=== PATIENT | female | born 1965 | race Two or more races ===

== ENCOUNTER 2018-05-04 12:30 | Emergency (ER) | payer SELFPAY ==
[~2018-05-04] VITALS: Ht 152.4 cm; Wt 74.4 kg
[2018-05-04 12:40] VITALS: BP 176/94
[2018-05-04] MEDS ORDERED: ORPHENADRINE CITRATE 60 MG/2 ML VIAL. IM ONE (13:15)
[2018-05-04] MEDS ORDERED: ORPH100T PO (14:06)
[2018-05-04] MEDS ORDERED: NAPR-695 PO (14:06)
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
== END 2018-05-04 14:15 | disposition home or self-care (01) ==
LOC: ER 12:30
DX: S16.1XXA Strain of muscle, fascia and tendon at neck level, initial encounter (principal); S29.012A Strain of muscle and tendon of back wall of thorax, initial encounter; M25.512 Pain in left shoulder; I10 Essential (primary) hypertension; M19.90 Unspecified osteoarthritis, unspecified site; E03.9 Hypothyroidism, unspecified; Z90.710 Acquired absence of both cervix and uterus; Z90.89 Acquired absence of other organs; V43.52XA Car driver injured in collision with other type car in traffic accident, initial encounter; Y93.89 Activity, other specified; Y92.410 Unspecified street and highway as the place of occurrence of the external cause; Y99.8 Other external cause status
CPT/HCPCS: 96372; 99283; J2360

== ENCOUNTER → 2018-05-08 | Outpatient (CLI) | payer SELFPAY ==
[2018-05-04 12:40] VITALS: BP 176/94
[~2018-05-08] MED LIST: NAPR-695 PO; ORPH100T PO
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
== END | disposition home or self-care (01) ==
LOC: KCIC 09:06
PROVIDERS: ATTEND Family Medicine
DX: M50.30 Other cervical disc degeneration, unspecified cervical region (principal); M48.02 Spinal stenosis, cervical region; M25.78 Osteophyte, vertebrae; M06.80 Other specified rheumatoid arthritis, unspecified site
CPT/HCPCS: 72040

== ENCOUNTER → 2020-03-06 | Outpatient (CLI) | payer OTHER ==
--- NOTE | 2020-03-06 08:38 | KCIC ---
ABDOMEN LTD History: Elevated liver enzymes Comparison: None. Findings: Multiple sonographic images of the abdomen are submitted. There is coarsening of the hepatic echotexture. Right lobe of the liver measured 15.5 cm longitudinal. There is no abnormality of the visualized pancreas. Right kidney measured 10.4 x 4.6 x 4.4 cm, no hydronephrosis. There is segmental visualization of the inferior vena cava. Most of the abdominal aorta is obscured by bowel gas, visualized distal abdominal aortic caliber within normal limits. Gallbladder is present without demonstrable intraluminal abnormality or wall thickening. Impression: 1. Coarsening of the hepatic echotexture is probably due to steatosis. No other significant abnormality is demonstrated. Electronically signed by: Eugenio Melvin MD (03/06/2020 8:35 AM) [facility]
== END ==
LOC: KCIC US 08:03
PROVIDERS: ATTEND Family Medicine
DX: R94.5 Abnormal results of liver function studies (principal)
CPT/HCPCS: 76705

== ENCOUNTER → 2020-06-25 | Outpatient (CLI) | payer OTHER ==
--- NOTE | 2020-06-25 19:48 | RAD ---
Exam: Right knee 3 views. Left knee 3 views INDICATION: Bilateral knee pain TECHNIQUE: Frontal, lateral and oblique views of the right and left knee Comparisons: None FINDINGS: Right knee: Bone mineralization is normal. No acute or healed fractures. Soft tissues are unremarkable. Joint spa yevgeniy are well-maintained. Left knee: Bone mineralization is normal. No acute or healed fractures. Soft tissues are unremarkable. Joint spa yevgeniy are well-maintained. IMPRESSION: No acute osseous abnormality of the right or left knee. Electronically signed by: Hetal Ybarra MD (06/25/2020 7:46 PM) [facility]
== END ==
LOC: RAD 15:01
PROVIDERS: ATTEND Family Medicine
DX: M25.562 Pain in left knee (principal); M25.561 Pain in right knee
CPT/HCPCS: 73562

== ENCOUNTER → 2020-08-29 | Outpatient (CLI) | payer SELFPAY ==
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
== END ==
LOC: KCIC MRI 08:55
PROVIDERS: ATTEND Family Medicine
DX: M47.816 Spondylosis without myelopathy or radiculopathy, lumbar region (principal); M48.07 Spinal stenosis, lumbosacral region
CPT/HCPCS: 72148

== ENCOUNTER → 2021-03-20 | Outpatient (CLI) | payer SELFPAY ==
--- NOTE | 2021-03-20 12:37 | KCIC ---
EXAMINATION: MRI RIGHT KNEE WITHOUT IV CONTRAST CLINICAL HISTORY: Chronic right knee pain, progressively worsening TECHNIQUE: Multiplanar multisequential images obtained through the knee without intravenous contrast. COMPARISON: Bilateral knee radiographs 06/25/2020 FINDINGS: MENISCI: Medial Meniscus: Intact. Lateral Meniscus: Intact. LIGAMENTS: ACL: Intact PCL: Intact MCL: Intact LCL Complex: Intact CARTILAGE: Medial Femoral Condyle: Small areas(s) of predominantly low grade (less than 50% thickness) cartilage loss and or fissuring with smaller area(s) of full thickness cartilage loss and or fissuring with south bchondral marrow reactive/cystic changes predominantly in the weightbearing portion of the condyle Medial Tibial Plateau: Normal Lateral Femoral Condyle: Small area(s) of low grade (less than 50% thickness) partial thickness carti joie loss and or fissuring Lateral Tibial Plateau: Normal Patella: Small areas(s) of predominantly low grade (less than 50% thickness) cartilage loss and or fi ssuring with smaller area(s) of high grade (greater than 50% thickness) cartilage loss and or fissuri ng inferiorly Trochlea: Small to moderate area(s) of full thickness cartilage loss and or fissuring with subchondra l marrow reactive/cystic changes in the central trochlea TENDONS: Distal quadriceps and patellar tendons intact. Popliteus tendon intact. BONES AND MARROW: No evidence of acute fracture or suspicious marrow replacing process. Poorly circum scribed focal increased T2 marrow signal near the PCL tibial attachment, nonspecific but possibly rel ated to chronic reactive changes. MUSCLES: Muscle bulk and signal intensity within normal limits. JOINT FLUID AND SYNOVIUM: Trace joint effusion. No synovitis. No Damian's cyst. IMPRESSION: Mild to moderate full-thickness chondral wear in the trochlea and medial femoral condyle as described . Electronically signed by: Joe Ruvalcaba DO (03/20/2021 12:35 PM) [id number]
== END ==
LOC: KCIC MRI 09:15
PROVIDERS: ATTEND Physical Medicine & Rehabilitation
DX: M25.561 Pain in right knee (principal)
CPT/HCPCS: 73721

== ENCOUNTER 2021-10-15 19:02 | Emergency (ER) | payer SELFPAY ==
[~2021-10-15] VITALS: Ht 152.4 cm; Wt 78.0 kg
[2021-10-15] MEDS ORDERED: IV RINGERS,LACTATED 1000ML 1,000 ML IV SCH (19:30)
[2021-10-15] MEDS ORDERED: ONDANSETRON PF 4 MG/2 ML VIAL. IVP ONE (19:30)
[2021-10-15] MEDS ORDERED: MORPHINE SULFATE 4 MG/ML INJ. IV/SQ PRN (19:30)
[2021-10-15 20:02] LABS: BASO # 0.1 x10^3/uL (0.0-0.2); BASO % 1 % (0-3); EOS % 0 % (0-3); HEMATOCRIT 37.2 % (36.0-47.0); HEMOGLOBIN 12.7 g/dL (12.0-15.5); LYMPH # 0.7 x10^3/uL (1.0-4.8); LYMPH % 8 % (24-48); MEAN CORPUSCULAR HEMOGLOBIN 33 pg (25-35); MEAN CORPUSCULAR HGB CONC 34 g/dL (31-37); MEAN CORPUSCULAR VOLUME 96 fL (79-100); MONO # 0.3 x10^3/uL (0.0-1.1); MONO % 4 % (0-9); NEUT # 7.5 x10^3/uL (1.8-7.7); NEUT % 87 % (31-73); PLATELET COUNT 214 x10^3/uL (140-400); RED BLOOD COUNT 3.88 x10^6/uL (3.50-5.40); RED CELL DISTRIBUTION WIDTH 16.2 % (11.5-14.5); WHITE BLOOD COUNT 8.6 x10^3/uL (4.0-11.0)
[2021-10-15 20:37] LABS: ALBUMIN 2.8 g/dL (3.4-5.0); ALBUMIN/GLOBULIN RATIO 0.7 (1.0-1.7); CALCIUM 8.6 mg/dL (8.5-10.1); CREATININE 0.8 mg/dL (0.6-1.0); GFR 74.7; TOTAL BILIRUBIN 1.1 mg/dL (0.2-1.0); TOTAL PROTEIN 6.7 g/dL (6.4-8.2)
[2021-10-15 20:41] LABS: POTASSIUM 2.8 mmol/L (3.5-5.1)
[2021-10-15] MEDS ORDERED: POTASSIUM CHLORIDE 20MEQ 100 ML IV ONE (20:45)
[2021-10-15] MEDS ORDERED: MAGNESIUM SULFATE 2GM 50 ML IV ONE (20:45)
--- NOTE | 2021-10-15 21:13 | RAD ---
EXAMINATION: CT ABDOMEN+PELVIS WO CLINICAL HISTORY: Abdominal pain and distention. TECHNIQUE: Imaging of the abdomen and pelvis was performed without intravenous contrast using standar d technique, scanning from just above the dome of the diaphragm to the symphysis pubis. Unenhanced i maging is limited for the evaluation of some intra-abdominal and pelvic pathology. CT Dose Reduction Employed: One or more of the following individualized dose reduction techniques wer e utilized for this examination: 1. Automated exposure control 2. Adjustment of the mA and/or kV ac cording to patient size 3. Use of iterative reconstruction technique. COMPARISON: None FINDINGS: Partially visualized small right pleural effusion with overlying airspace disease. Follow-up basilar subsegmental atelectasis and/or scarring. Mild increased density in the dependent gallbladder, possibly related to biliary sludge and/or stones . Liver, pancreas, spleen, adrenal glands, and kidneys unremarkable. Moderately filled urinary bladder. Uterus and ovaries poorly visualized, possibly surgically absent. Prominent stool throughout the colon, some of which is liquid stool. No dilated bowel. Appendix appea rs within normal limits. Minimal scattered free fluid in the abdomen, most pronounced inferiorly, and mild mesenteric edema. M inimal arterial atherosclerotic calcification without aneurysm. Prominent bilateral inguinal lymph nodes, likely reactive. Multilevel degenerative changes in the tho racic spine. IMPRESSION: Prominent stool throughout the colon as described, correlate for constipation. Mild scattered free fluid and mesenteric edema in the abdomen, nonspecific. Lack of intravenous contrast limits evaluation for inflammatory pathology. Small right pleural effusion with overlying airspace disease. Additional nonacute findings as described. Electronically signed by: Joe Ruvalcaba DO (10/15/2021 9:11 PM) [facility]
[2021-10-15 21:48] LABS: BACTERIA,URINE FEW /HPF (0-FEW); RBC,URINE 0 /HPF (0-2)
[2021-10-15] MEDS ORDERED: MAGNESIUM CITRATE 296 ML SOLUTION. PO ONE ×2 (22:00)
[2021-10-15 23:29] VITALS: BP 119/60
[2021-10-16] MEDS ORDERED: DOCUSATE SODIUM 283 MG/5 ML ENEMA. PR ONE (00:15)
[2021-10-16] MEDS ORDERED: POLY17PO29 PO (01:28)
--- NOTE | 2021-10-16 01:28 | PHYS DOC ---
Past Medical History Past Medical History: Arthritis, Hypertension, Hypothyroid, Other Additional Past Medical Histor: sjogrens syndrome, RA Past Surgical History: Hysterectomy, Tonsillectomy, Other Additional Past Surgical Histo: partial thyroidectomy Smoking Status: Never Smoker Alcohol Use: None Drug Use: None General Adult EDM: Chief Complaint: ABDOMINAL PAIN HPI: HPI: Patient is a 56 year old female who presents to the emergency department today with concerns for constipation. Patient states that she has last had a bowel movement about 2 days ago. She states before that it was about 7 days ago. She does endorse some abdominal pain. She also endorses some abdominal distention. She describes the pain as pressure-like. There are no palliative or provocative factors for her. She states is diffuse across her abdomen. She denies any n ausea or vomiting. She denies any blood in her stools or black tarry stools. She has had previous abdominal surgery. Patient states she is passing gas. Review of Systems: Review of Systems: Constitutional: Denies fever or chills. [] Eyes: Denies change in visual acuity. [] HENT: Denies nasal congestion or sore throat. [] Respiratory: Denies cough or shortness of breath. [] Cardiovascular: Denies chest pain or edema. [] GI: Denies nausea, vomiting, bloody stools or diarrhea. [] : Denies dysuria. [] Musculoskeletal: Denies back pain or joint pain. [] Integument: Denies rash. [] Neurologic: Denies headache, focal weakness or sensory changes. [] Endocrine: Denies polyuria or polydipsia. [] Lymphatic: Denies swollen glands. [] Psychiatric: Denies depression or anxiety. [] Heart Score: C/O Chest Pain: No Family History: Family History: Noncontributory Current Medications: Current Medications Medications (Trade) Dose Ordered Sig/Laith Start Time Stop Time Status Last Admin Dose Admin Docusate Sodium (Enemeez) 283 mg 1X ONCE 10/16/21 00:15 10/16/21 00:16 DC Magnesium Citrate (Citroma) 296 ml 1X ONCE 10/15/21 22:00 10/15/21 22:01 UNV Magnesium Sulfate 50 ml @ 25 mls/hr 1X ONCE 10/15/21 20:45 10/15/21 22:44 DC 10/15/21 21:00 25 MLS/HR Morphine Sulfate (Morphine Sulfate) 4 mg ONCE PRN 10/15/21 19:30 10/16/21 19:29 10/15/21 19:59 4 MG Ondansetron HCl (Zofran) 4 mg 1X ONCE 10/15/21 19:30 10/15/21 19:44 DC 10/15/21 19:58 4 MG Potassium Chloride/Water 100 ml @ 100 mls/hr 1X ONCE 10/15/21 20:45 10/15/21 21:44 DC 10/15/21 21:01 100 MLS/HR Ringer's Solution 1,000 ml @ 1,000 mls/hr Q1H 10/15/21 19:30 10/15/21 20:29 DC 10/15/21 19:30 1,000 MLS/HR Allergies: Allergies: Allergies Coded Allergies Type Severity Reaction Last Updated Verified No Known Drug Allergies 05/04/18 No Physical Exam: PE: Constitutional: Well developed, well nourished, no acute distress, non-toxic appearance. [] HENT: Normocephalic, atraumatic, bilateral external ears normal, oropharynx moist, no oral exudates, nose normal. [] Eyes: PERRLA, EOMI, conjunctiva normal, no discharge. [] Neck: Normal range of motion, no tenderness, supple, no stridor. [] Cardiovascular:Heart rate regular rhythm, no murmur [] Lungs & Thorax: Bilateral breath sounds clear to auscultation [] Abdomen: Bowel sounds normal, soft, distended, diffusely tender to palpation. No rebound or guarding. No masses, no pulsatile masses. [] Skin: Warm, dry, no erythema, no rash. [] Back: No tenderness, no CVA tenderness. [] Extremities: No tenderness, no cyanosis, no clubbing, ROM intact, no edema. [] Neurologic: Alert and oriented X 3, normal motor function, normal sensory function, no focal deficits noted. [] Psychologic: Affect normal, judgement normal, mood normal. [] Current Patient Data: Labs: Laboratory Tests Test 10/15/21 19:54 10/15/21 21:07 White Blood Count 8.6 x10^3/uL (4.0-11.0) Red Blood Count 3.88 x10^6/uL (3.50-5.40) Hemoglobin 12.7 g/dL (12.0-15.5) Hematocrit 37.2 % (36.0-47.0) Mean Corpuscular Volume 96 fL (79-100) Mean Corpuscular Hemoglobin 33 pg (25-35) Mean Corpuscular Hemoglobin Concent 34 g/dL (31-37) Red Cell Distribution Width 16.2 % (11.5-14.5) H Platelet Count 214 x10^3/uL (140-400) Neutrophils (%) (Auto) 87 % (31-73) H Lymphocytes (%) (Auto) 8 % (24-48) L Monocytes (%) (Auto) 4 % (0-9) Eosinophils (%) (Auto) 0 % (0-3) Basophils (%) (Auto) 1 % (0-3) Neutrophils # (Auto) 7.5 x10^3/uL (1.8-7.7) Lymphocytes # (Auto) 0.7 x10^3/uL (1.0-4.8) L Monocytes # (Auto) 0.3 x10^3/uL (0.0-1.1) Eosinophils # (Auto) 0.0 x10^3/uL (0.0-0.7) Basophils # (Auto) 0.1 x10^3/uL (0.0-0.2) Sodium Level 140 mmol/L (136-145) Potassium Level 2.8 mmol/L (3.5-5.1) *L Chloride Level 101 mmol/L (98-107) Carbon Dioxide Level 30 mmol/L (21-32) Anion Gap 9 (6-14) Blood Urea Nitrogen 12 mg/dL (7-20) Creatinine 0.8 mg/dL (0.6-1.0) Estimated GFR (Cockcroft-Gault) 74.7 BUN/Creatinine Ratio 15 (6-20) Glucose Level 177 mg/dL (70-99) H Calcium Level 8.6 mg/dL (8.5-10.1) Total Bilirubin 1.1 mg/dL (0.2-1.0) H Aspartate Amino Transferase (AST) 107 U/L (15-37) H Alanine Aminotransferase (ALT) 47 U/L (14-59) Alkaline Phosphatase 145 U/L (46-116) H Troponin I High Sensitivity 168 ng/L (4-50) H Total Protein 6.7 g/dL (6.4-8.2) Albumin 2.8 g/dL (3.4-5.0) L Albumin/Globulin Ratio 0.7 (1.0-1.7) L Lipase 96 U/L (73-393) Urine Collection Type Unknown Urine Color (Auto) Yellow Urine Turbidity Clear Urine pH (Auto) 7.0 (<5.0-8.0) Urine Specific [place] 1.015 (1.000-1.030) Urine Protein (Auto) 30 mg/dL (Negative) Urine Glucose (Auto)(UA) Negative mg/dL (Negative) Urine Ketones (Auto) Negative mg/dL (Negative) Urine Blood (Auto) Negative (Negative) Urine Nitrite (Auto) Negative (Negative) Urine Bilirubin (Auto) Negative (Negative) Urine Urobilinogen (Auto) 2 mg/dL (Normal) Urine Leukocyte Esterase (Auto) Negative (Negative) Urine RBC 0 /HPF (0-2) Urine WBC 1-4 /HPF (0-4) Urine Squamous Epithelial Cells Few /LPF Urine Bacteria Few /HPF (0-FEW) Laboratory Tests 10/15/21 19:54 Laboratory Tests 10/15/21 19:54 Vital Signs: Vital Signs Date Time Temp Pulse Resp B/P (MAP) Pulse Ox O2 Delivery O2 Flow Rate FiO2 10/15/21 20:07 98 20 131/61 (84) 98 Room Air 10/15/21 19:05 98.0 98.0 EKG: EKG: EKG shows normal sinus rhythm with a rate of 97. Intervals are normal. There is a leftward axis. She does have some inverted T waves in the lateral leads. No evidence of any acute ischemia or infarction. EKG was read interpreted by myself. [] Radiology/Procedures: Radiology/Procedures: EXAMINATION: CT ABDOMEN+PELVIS WO CLINICAL HISTORY: Abdominal pain and distention. TECHNIQUE: Imaging of the abdomen and pelvis was performed without intravenous contrast using standard technique, scanning from just above the dome of the diaphragm to the symphysis pubis. Unenhanced imaging is limited for the evaluation of some intra-abdominal and pelvic pathology. CT Dose Reduction Employed: One or more of the following individualized dose reduction techniques were utilized for this examination: 1. Automated exposure control 2. Adjustment of the mA and/or kV according to patient size 3. Use of iterative reconstruction technique. COMPARISON: None FINDINGS: Partially visualized small right pleural effusion with overlying airspace disease. Follow-up basilar subsegmental atelectasis and/or scarring. Mild increased density in the dependent gallbladder, possibly related to biliary sludge and/or stones. Liver, pancreas, spleen, adrenal glands, and kidneys unremarkable. Moderately filled urinary bladder. Uterus and ovaries poorly visualized, possibly surgically absent. Prominent stool throughout the colon, some of which is liquid stool. No dilated bowel. Appendix appears within normal limits. Minimal scattered free fluid in the abdomen, most pronounced inferiorly, and mild mesenteric edema. Minimal arterial atherosclerotic calcification without aneurysm. Prominent bilateral inguinal lymph nodes, likely reactive. Multilevel degenerative changes in the thoracic spine. IMPRESSION: Prominent stool throughout the colon as described, correlate for constipation. Mild scattered free fluid and mesenteric edema in the abdomen, nonspecific. Lack of intravenous contrast limits evaluation for inflammatory pathology. Small right pleural effusion with overlying airspace disease. Additional nonacute findings as described. Electronically signed by: Joe Ruvalcaba DO (10/15/2021 9:11 PM) [facility] Impression: Constipation Abdominal pain Course & Med Decision Making: Course & Med Decision Making Patient remained hemodynamically stable in the emergency department. She was evaluated at the bedside with aphysical exam. Basic labs obtained and are unremarkable. CT shows no evidence of bowel obstruction but does show some mesenteric edema and free fluid in the pelvis. She was given mag citrate and milk of magnesia and had a bowel movement here in the emergency department which gave her relief of her symptoms. Patient will be discharged home and have follow-up with her PCP. Dyllan Disclaimer: Dyllan Disclaimer: This electronic medical record was generated, in whole or in part, using a voice recognition dictation system. Departure Departure Impression: Primary Impression: Constipation Additional Impression: Abdominal pain Disposition: HOME / SELF CARE / HOMELESS Condition: IMPROVED Referrals: ROSSY PALAFOX MD (PCP) Patient Instructions: Constipation, Adult Scripts Polyethylene Glycol 3350 (MIRALAX) 17 Gm Powd.pack 1 PACKET PO DAILY for constipation, #10 PACKET 0 Refills dissolve in water Prov: JESSICA CONN MD 10/16/21 JESSICA CONN MD October 16, 2021 01:28
--- NOTE | 2021-10-20 07:46 | EKG ---
[facility] [address] [place] [address] Test Date: 2021-10-15 Test Time: 20:53:40 Pat Name: DANIEL PHILIP Department: Room: Gender: F [employer]: : [id number] Requested By: JESSICA CONN Order Number: [id number] Reading MD: Norberto Christine MD Measurements Intervals Farrell Rate: 97 P: -90 HI: 136 QRS: -16 QRSD: 94 T: 59 QT: 400 QTc: 513 Interpretive Statements SINUS RHYTHM LAD NON-SPECIFIC ST/T CHANGES Electronically Signed On 10-20-2021 11:32:15 CDT by Norberto Christine MD
== END 2021-10-16 01:40 | disposition home or self-care (01) ==
LOC: ER 19:02
DX: K59.00 Constipation, unspecified (principal); I10 Essential (primary) hypertension; E03.9 Hypothyroidism, unspecified; Z90.710 Acquired absence of both cervix and uterus
CPT/HCPCS: 36415; 74176; 80053; 81001; 83690; 84484; 85025; 93005; 96361; 96365; 96366; 96368; 96375; 99285; J2270; J2405; J3475; J3480; J7120